=== PATIENT | male | born 1975 | race Caucasian/White ===

== ENCOUNTER 2016-08-01 21:30 | Emergency (ER) | payer OTHER ==
[~2016-08-01] VITALS: Ht 170.2 cm; Wt 77.3 kg
[~2016-08-01 21:30] MED LIST: FLOMAX 0.40.4 MG/CAP PO; MOTRIN 800800 MG/TAB PO
[2016-08-01] MEDS ORDERED: PROAIR HFA0.09 MG/AC IH (21:44)
[2016-08-01 22:10] LABS: BASO # 0.1 (0.0-0.2); BASO % 0.5 % (0.0-2.0); EOS # 0.3 (0.0-0.7); EOS % 2.8 % (0-4.0); GRAN # 6.1 (1.4-6.5); HEMATOCRIT 44.1 % (42.0-52.0); HEMOGLOBIN 14.9 g/dl (13.5-18.0); LYMPH % 29.6 % (20.0-51.0); MEAN CELL VOLUME 81 fl (80.0-100.0); MEAN CORPUSCULAR HEMOGLOBIN 27 pg (27.0-31.0); MEAN CORPUSCULAR HGB CONC 34 g/dl (33.0-37.0); MEAN PLATELET VOLUME 8.8 fl (7.4-10.4); MONO # 0.6 (0.1-0.6); MONO % 5.7 % (1.7-9.3); PLATELET COUNT 354 K/mm3 (130-400); RED BLOOD COUNT 5.47 M/mm3 (4.20-5.60); REDCELL DISTRIBUTION WIDTH-CV 13.2 % (11.5-14.5)
[2016-08-01 22:25] VITALS: TEMP 97
[2016-08-01 22:27] LABS: PH 6 (5-8); SQUAMOUS EPITHELIAL None Seen /hpf; URINE APPEARANCE Clear; URINE BACTERIA None Seen /hpf; URINE BILIRUBIN Negative (NEGATIVE); URINE BLOOD Negative (NEGATIVE); URINE COLOR Yellow; URINE GLUCOSE Negative (NEGATIVE); URINE KETONE Trace (NEGATIVE); URINE RBC 0-2 /hpf; URINE WBC 0-2 /hpf
[2016-08-01 22:27] LABS: ADJUSTED CALCIUM 9.2 mg/dL (8.4-10.2); ALBUMIN 4.6 gm/dL (3.5-5.0); BILIRUBIN,TOTAL 0.7 mg/dL (0.0-1.0); CALCIUM 9.7 mg/dL (8.4-10.2); CREATININE, serum 0.9 mg/dL (0.66-1.25); POTASSIUM 3.1 mmol/L (3.4-5.0); TOTAL PROTEIN 8.1 gm/dL (6.4-8.2)
[2016-08-01] MEDS ORDERED: ULTRAM 50MG TAB50 MG PO (22:55)
[2016-08-01] MEDS ORDERED: PRIL40 PO (22:55)
[2016-08-01] MEDS ORDERED: ZOFRAN8 MG PO (22:55)
[2016-08-01 23:15] VITALS: BP 116/86; PULSE 78
== END 2016-08-01 23:18 | disposition home or self-care (01) ==
LOC: COL.ER 21:30
PROVIDERS: Emergency Medicine
DX: R10.13 Epigastric pain (principal); R11.0 Nausea; R63.0 Anorexia
CPT/HCPCS: C9113; J1170; J1885

== ENCOUNTER 2016-08-03 14:41 | Observation (INO) | payer OTHER ==
[~2016-08-03] VITALS: Ht 170.2 cm; Wt 77.3 kg
[~2016-08-03 14:41] MED LIST changes: +PRIL40 PO; +PROAIR HFA0.09 MG/AC IH; +ULTRAM 50MG TAB50 MG PO; +ZOFRAN8 MG PO
[2016-08-03 15:39] LABS: BASO % 0.3 % (0.0-2.0); EOS # 0.3 (0.0-0.7); EOS % 2.2 % (0-4.0); GRAN # 7.8 (1.4-6.5); GRAN % 65.9 % (42.2-75.2); HEMATOCRIT 42.5 % (42.0-52.0); HEMOGLOBIN 14.3 g/dl (13.5-18.0); LYMPH # 2.7 (1.2-3.4); LYMPH % 22.4 % (20.0-51.0); MEAN CELL VOLUME 82 fl (80.0-100.0); MEAN CORPUSCULAR HEMOGLOBIN 28 pg (27.0-31.0); MEAN CORPUSCULAR HGB CONC 34 g/dl (33.0-37.0); MEAN PLATELET VOLUME 8.7 fl (7.4-10.4); MONO % 8.8 % (1.7-9.3); PLATELET COUNT 290 K/mm3 (130-400); RED BLOOD COUNT 5.18 M/mm3 (4.20-5.60); REDCELL DISTRIBUTION WIDTH-CV 13.4 % (11.5-14.5); WHITE BLOOD COUNT 11.9 K/mm3 (4.8-10.8)
[2016-08-03 15:42] LABS: ADJUSTED CALCIUM 8.7 mg/dL (8.4-10.2); ALBUMIN 4.4 gm/dL (3.5-5.0); BILIRUBIN,TOTAL 1.1 mg/dL (0.0-1.0); CREATININE, serum 0.92 mg/dL (0.66-1.25); POTASSIUM 3.5 mmol/L (3.4-5.0); TOTAL PROTEIN 7.7 gm/dL (6.4-8.2)
[2016-08-03 20:15] VITALS: BP 110/67; PULSE 88
[2016-08-03 20:30] VITALS: BP 117/70; PULSE 92
[2016-08-03 20:45] VITALS: BP 119/51; PULSE 103
[2016-08-03 21:00] VITALS: BP 86/50; PULSE 90
[2016-08-03 21:30] VITALS: BP 104/72; PULSE 102
[2016-08-03 23:01] VITALS: BP 110/66; PULSE 84
[2016-08-04 01:43] VITALS: BP 111/58; PULSE 71; TEMP 97.8
[2016-08-04 06:08] VITALS: BP 101/65; PULSE 75; TEMP 97.9
[2016-08-04] MEDS ORDERED: NORCO 325 MG-51 TAB PO (09:37)
== END 2016-08-04 10:15 | disposition home or self-care (01) ==
LOC: COL.ER 14:41 → SURG 17:14
PROVIDERS: Emergency Medicine
DX: K80.00 Calculus of gallbladder with acute cholecystitis without obstruction (principal); K66.0 Peritoneal adhesions (postprocedural) (postinfection); K21.9 Gastro-esophageal reflux disease without esophagitis; J45.909 Unspecified asthma, uncomplicated
CPT/HCPCS: A9284; G0378; G0379; J1100; J1170; J1885; J2270; J2405; J2543; J2704; J2710; J3010; J7030; J7050; Q9967

== ENCOUNTER → 2017-04-03 | Outpatient (CLI) | payer OTHER ==
[~2017-04-03] MED LIST changes: +NORCO 325 MG-51 TAB PO
[2017-04-03 16:16] LABS: BASO % 0.4 % (0.0-2.0); EOS # 0.3 (0.0-0.7); EOS % 3.7 % (0-4.0); GRAN # 4.4 (1.4-6.5); GRAN % 59.1 % (42.2-75.2); HEMATOCRIT 44.2 % (42.0-52.0); HEMOGLOBIN 15.2 g/dl (13.5-18.0); LYMPH # 2.2 (1.2-3.4); LYMPH % 29.4 % (20.0-51.0); MEAN CELL VOLUME 82 fl (80.0-100.0); MEAN CORPUSCULAR HEMOGLOBIN 28 pg (27.0-31.0); MEAN CORPUSCULAR HGB CONC 34 g/dl (33.0-37.0); MEAN PLATELET VOLUME 9.1 fl (7.4-10.4); MONO # 0.5 (0.1-0.6); MONO % 7.1 % (1.7-9.3); PLATELET COUNT 329 K/mm3 (130-400); RED BLOOD COUNT 5.38 M/mm3 (4.20-5.60); REDCELL DISTRIBUTION WIDTH-CV 13.1 % (11.5-14.5)
[2017-04-03 16:23] LABS: ALBUMIN 4.8 gm/dL (3.5-5.0); BILIRUBIN,TOTAL 0.8 mg/dL (0.0-1.0); CALCIUM 9.8 mg/dL (8.4-10.2); CREATININE, serum 1.02 mg/dL (0.66-1.25); POTASSIUM 4.1 mmol/L (3.4-5.0); TOTAL PROTEIN 7.9 gm/dL (6.4-8.2)
[2017-04-03 16:52] LABS: TSH w REFLEX 3.19 uIU/mL (0.465-4.680)
== END ==
LOC: COL.LAB 13:45
PROVIDERS: Family Medicine
DX: R53.83 Other fatigue (principal)